=== PATIENT | male | born 1995 ===

== ENCOUNTER 2025-06-10 11:01 | Emergency (ER) | payer SELFPAY ==
[2025-06-10] MEDS: Water For Injection, Sterile 10 ML SDV INJECT ONE (11:25)
[2025-06-10] MEDS: Diphtheria,Pertussis(Acell),Tetanus Vaccine 0.5 ML Syringe IM ONE (11:25)
[2025-06-10] MEDS: Lidocaine 1% with EPINEPHrine 1:100,000 10 ML MDV INJECT ONE (11:57)
[2025-06-10] MEDS: Bacitracin Oint 1 GM U/D Packet TOP ONE (12:30)
== END 2025-06-10 12:38 | disposition home or self-care (01) ==
LOC: MW.ED 11:01
DX: S61.412A Laceration without foreign body of left hand, initial encounter (principal); Z23 Encounter for immunization; W31.9XXA Contact with unspecified machinery, initial encounter; Y99.0 Civilian activity done for income or pay
CPT/HCPCS: 12002; 73130; 90471; 90715; 96372; 99283; J0690; J2004